=== PATIENT | male | born 1975 | race American Indian/Alaskan Native ===

== ENCOUNTER 2018-01-20 08:48 | Observation (INO) | payer MEDICAID ==
[2018-01-20] MEDS ORDERED: Sodium Chloride 0.9% 1,000 ML IV STA (09:32)
--- NOTE | 2018-01-20 09:37 | ED PDOC ---
Arrival/HPI - General Chief Complaint: Abdominal Pain Time Seen by Provider: 01/20/18 09:29 Historian: Patient - History of Present Illness Narrative History of Present Illness (Text): 01/20/18 09:35 42-year-old male presents today with a 2 week history of left-sided abdominal pain. Patient describes an intermittent achy pain in the left side of the abdomen. He is complaining of nausea without vomiting. He is complaining of ur inary frequency but denies dysuria or testicular pain. He denies fevers or chills. He denies radiation of pain to the back. Patient states the pain is localized to the left side of the abdomen. He states he's occasionally had a few loose stools. no medications have been taken for pain within the past week. No other complaints. Past Medical History - Provider Review Nursing Documentation Reviewed: Yes - Travel History Have you recently traveled outside [place] w/in the past 3 mons?: No - Infectious Disease Hx of Infectious Diseases: None - Tetanus Immunization Tetanus Immunization: Up to Date - Cardiac Hx Cardiac Disorders: No - Pulmonary Hx Asthma: Yes - Psychiatric Hx Depression: No Hx Emotional Abuse: No Hx Physical Abuse: No Hx Substance Use: No - Surgical History Hx Inguinal Hernia Repair: Yes - Anesthesia Hx Anesthesia: No - Suicidal Assessment Feels Threatened In Home Enviroment: No Family/Social History - Physician Review Nursing Documentation Reviewed: Yes Family/Social History: Unknown Family HX Smoking Status: Unknown If Ever Smoked Hx Alcohol Use: Yes Hx Substance Use: No Hx Substance Use Treatment: No Allergies/Home Meds Allergies/Adverse Reactions: Allergies seasonal Allergy (Uncoded 01/20/18 09:23) CONGESTION Home Medications: Home Meds Medication Instructions Recorded Confirmed Albuterol HFA [Ventolin HFA 90 0.09 mg IH PRN PRN 01/15/16 01/20/18 mcg/actuation (8 g)] Ibuprofen [Motrin] 600 mg PO Q6H PRN 01/20/18 01/20/18 Review of Systems - Review of Systems Constitutional: absent: Fatigue, Fevers Respiratory: absent: SOB, Cough Cardiovascular: absent: Chest Pain, Palpitations Gastrointestinal: Abdominal Pain, Nausea. absent: Constipation, Diarrhea, Vomiting Genitourinary Male: Frequency. absent: Dysuria, Hematuria Musculoskeletal: absent: Arthralgias, Back Pain, Neck Pain Skin: absent: Rash, Pruritis Neurological: absent: Headache, Dizziness Psychiatric: absent: Anxiety, Depression Physical Exam Vital Signs Reviewed: Yes Vital Signs Temp Pulse Resp BP Pulse Ox 01/20/18 09:13 98.8 F 70 18 130/78 98 Temperature: Afebrile Blood Pressure: Normal Pulse: Regular Respiratory Rate: Normal Appearance: Positive for: Well-Appearing, Non-Toxic, Comfortable Pain Distress: None Mental Status: Positive for: Alert and Oriented X 3 - Systems Exam Head: Present: Atraumatic Mouth: Present: Moist Mucous Membranes Neck: Present: Normal Range of Motion Respiratory/Chest: Present: Clear to Auscultation, Good Air Exchange. No: Respiratory Distress, Accessory Muscle Use Cardiovascular: Present: Regular Rate and Rhythm, Normal S1, S2. No: Murmurs Abdomen: Present: Tenderness (+ minimal LUQ and LLQ tenderness. ). No: Distention, Peritoneal Signs, Rebound, Guarding Back: Present: Normal Inspection. No: CVA Tenderness, Midline Tenderness, Paraspinal Tenderness Upper Extremity: Present: Normal ROM Lower Extremity: Present: Normal ROM Neurological: Present: GCS=15, Speech Normal Skin: Present: Warm, Dry, Normal Color. No: Rashes Psychiatric: Present: Alert, Oriented x 3 Medical Decision Making ED Course and Treatment: 01/20/18 10:15 Patient is nontoxic well appearing with stable vital signs presenting with left- sided abdominal pain CBC within normal limits CMp within normal limits Lipase within normal limits Urinalysis positive blood, no leukocytes EKG: Sinus bradycardia at 54 bpm normal axis normal intervals no ST elevations CAT scan: FINDINGS: LOWER THORAX: There is a lucency identified in the right lobe liver measuring 1.6 x 1.5 cm posteriorly. Peripheral nodular enhancement appears to be developing at this may represent a benign hemangioma. More definitive evaluation is advised using CT of the abdomen or MRI of the abdomen with and without contrast to prove this as a benign lesion. Remainder the liver appears unremarkable. LIVER: Unremarkable. No gross lesion or ductal dilatation. GALLBLADDER AND BILE DUCTS: Unremarkable. PANCREAS: Unremarkable. No gross lesion or ductal dilatation. SPLEEN: Unremarkable. ADRENALS: Unremarkable. No mass. KIDNEYS AND URETERS: Unremarkable. No hydronephrosis. No solid mass. VASCULATURE: Unremarkable. No aortic aneurysm. No aortic atherosclerotic calcification or mural plaque present. BOWEL: Stomach is only partially filled with fluid and a bit of air and retained food. No gross finding. The bowel is not appear obstructed. There is relatively prominent amount retained fecal material scattered throughout the colon which may indicate an element of constipation. Clinically correlate further. No perienteric or pericolic reactive changes throughout. No diverticular changes appreciated. APPENDIX: Normal appendix. PERITONEUM: Unremarkable. No free fluid. No free air. LYMPH NODES: Unremarkable. No enlarged lymph nodes. BLADDER: Unremarkable. REPRODUCTIVE: Unremarkable. BONES: No acute fracture. OTHER FINDINGS: None. IMPRESSION: 1. No acute abdominal or pelvic findings including the appendix. No colonic diverticular changes. 2. Subtle constipation as discussed above. No bowel obstruction, measure edema, ascites or free intra peritoneal gas collection. 3. 1.6 cm lesion right lobe liver potentially reflecting benign hemangioma. Evaluation is indeterminate by current exam. Follow-up ultrasound of the CT or MRI of the abdomen with and without contrast is advised for better characterization Toradol given for pain, normal saline IV bolus Patient reassessment:pt is non toxic well appearing; no distress. still c/o nausea and vague left sided pain. case discussed with dr. delgado; accepts observational status admission. all aspects of this case were discussed the attending of record. Impression: near syncope, Abdominal pain, liver lesion admit observational status remote tele Reassessment Condition: Re-examined, Improved - RAD Interpretation Radiology Orders: 01/20/18 09:30 ABD & PELVIS IV CONTRAST ONLY [CT] Stat - Medication Orders Current Medication Orders: Sodium Chloride (Sodium Chloride 0.9%) 1,000 mls @ 999 mls/hr IV .Q1H1M STA Stop: 01/20/18 10:32 Ketorolac Tromethamine (Toradol) 30 mg IVP STAT STA Stop: 01/20/18 09:33 Disposition/Present on Arrival - Present on Arrival Any Indicators Present on Arrival: No History of DVT/PE: No History of Uncontrolled Diabetes: No Urinary Catheter: No History of Decub. Ulcer: No History Surgical Site Infection Following: None - Disposition Have Diagnosis and Disposition been Completed?: Yes Diagnosis: Abdominal pain, Liver lesion, Hematuria, Near syncope Disposition: HOSPITALIZED Disposition Time: 11:41 Patient Plan: Observation Patient Problems: Current Active Problems Problem Status Onset Abdominal pain Acute Hematuria Acute Liver lesion Acute Near syncope Acute Condition: GOOD
[2018-01-20 09:57] LABS: PH,URINE 6.5 (4.7-8.0); URINE BILIRUBIN NEGATIVE (NEGATIVE); URINE BLOOD TRACE-INTACT (NEGATIVE); URINE GLUCOSE (UA) NEGATIVE (NEGATIVE); URINE LEUKOCYTE ESTERASE NEGATIVE Leu/uL (NEGATIVE); URINE PROTEIN NEGATIVE mg/dL (<30 mg/dL); URINE UROBILINOGEN 0.2 E.U./dL (<1 E.U./dL)
[2018-01-20 09:58] LABS: URINE APPEARANCE CLEAR (CLEAR); URINE COLOR YELLOW (YELLOW)
[2018-01-20 09:58] LABS: BASO # 0.02 K/mm3 (0.0-2.0); BASO % 0.4 % (0.0-3.0); EOS # 0.2 (0.0-0.7); GRAN # 2.09 (1.4-6.5); GRAN % 38.3 % (50.0-68.0); HEMOGLOBIN 14.5 g/dL (14.0-18.0); LYMPH # 2.8 (1.2-3.4); LYMPH % 51.6 % (22.0-35.0); MEAN CELL VOLUME 82.4 fl (80.0-105.0); MEAN CORPUSCULAR HEMOGLOBIN 28.4 pg (25.0-35.0); MEAN CORPUSCULAR HGB CONC 34.4 g/dl (31.0-37.0); MEAN PLATELET VOLUME 10.3 fl (7.0-11.0); MONO # 0.3 (0.1-0.6); MONO % 5.7 % (1.0-6.0); RBC 5.11 10^6/uL (3.5-6.1); RED CELL DISTRIBUTION WIDTH 12.9 % (11.5-14.5); WHITE BLOOD COUNT 5.5 10^3/uL (4.5-11.0)
[2018-01-20 10:07] LABS: ALB/GLOB RATIO 1.4 (1.1-1.8); ALBUMIN 4.3 g/dL (3.0-4.8); ALT/SGPT 32 U/L (7-56); AST/SGOT 26 U/L (17-59); BLOOD UREA NITROGEN 13 mg/dL (7-21); CALCIUM 9.6 mg/dL (8.4-10.5); GFR NON-AFRICAN AMERICAN > 60; LIPASE 111 U/L (23-300)
[2018-01-20 10:12] LABS: URINE RBC 0 - 2 /hpf (0-2)
[2018-01-20 10:13] LABS: URINE BACTERIA TRACE (NEG); URINE WBC NEGATIVE /hpf (0-6)
--- NOTE | 2018-01-20 11:08 | CT ---
Date of service: 01/20/2018 PROCEDURE: CT Abdomen and Pelvis with contrast HISTORY: left sided abd pain COMPARISON: None. TECHNIQUE: Following the intravenous administration of iodinated contrast material, a CT examination of the abdomen and pelvis performed from the domes of the diaphragms to the symphysis pubis with reformatted datasets provided in axial, sagittal and coronal planes. Oral contrast was not administered as per referring physician request. Coronal and sagittal reformats were generated. contrast dose: Omnipaque 350, 150 cc Radiation dose: Total exam DLP = 780.53 mGy-cm. This CT exam was performed using one or more of the following dose reduction techniques: Automated exposure control, adjustment of the mA and/or kV according to patient size, and/or use of iterative reconstruction technique. FINDINGS: LOWER THORAX: There is a lucency identified in the right lobe liver measuring 1.6 x 1.5 cm posteriorly. Peripheral nodular enhancement appears to be developing at this may represent a benign hemangioma. More definitive evaluation is advised using CT of the abdomen or MRI of the abdomen with and without contrast to prove this as a benign lesion. Remainder the liver appears unremarkable. LIVER: Unremarkable. No gross lesion or ductal dilatation. GALLBLADDER AND BILE DUCTS: Unremarkable. PANCREAS: Unremarkable. No gross lesion or ductal dilatation. SPLEEN: Unremarkable. ADRENALS: Unremarkable. No mass. KIDNEYS AND URETERS: Unremarkable. No hydronephrosis. No solid mass. VASCULATURE: Unremarkable. No aortic aneurysm. No aortic atherosclerotic calcification or mural plaque present. BOWEL: Stomach is only partially filled with fluid and a bit of air and retained food. No gross finding. The bowel is not appear obstructed. There is relatively prominent amount retained fecal material scattered throughout the colon which may indicate an element of constipation. Clinically correlate further. No perienteric or pericolic reactive changes throughout. No diverticular changes appreciated. APPENDIX: Normal appendix. PERITONEUM: Unremarkable. No free fluid. No free air. LYMPH NODES: Unremarkable. No enlarged lymph nodes. BLADDER: Unremarkable. REPRODUCTIVE: Unremarkable. BONES: No acute fracture. OTHER FINDINGS: None. IMPRESSION: 1. No acute abdominal or pelvic findings including the appendix. No colonic diverticular changes. 2. Subtle constipation as discussed above. No bowel obstruction, measure edema, ascites or free intra peritoneal gas collection. 3. 1.6 cm lesion right lobe liver potentially reflecting benign hemangioma. Evaluation is indeterminate by current exam. Follow-up ultrasound of the CT or MRI of the abdomen with and without contrast is advised for better characterization
[2018-01-20 12:18] LABS: TROPONIN I < 0.01 ng/mL
--- NOTE | 2018-01-20 13:42 | RAD ---
Date of service: 01/20/2018 HISTORY: abd pain COMPARISON: No prior. FINDINGS: LUNGS: No active pulmonary disease. PLEURA: No significant pleural effusion identified, no pneumothorax apparent. CARDIOVASCULAR: No aortic atherosclerotic calcification present. Normal cardiac size. No pulmonary vascular congestion. OSSEOUS STRUCTURES: No significant abnormalities. VISUALIZED UPPER ABDOMEN: Normal. OTHER FINDINGS: None. IMPRESSION: No active disease.
--- NOTE | 2018-01-20 15:49 | CARD ---
APPROVED REPORT Date of service: 01/20/2018 EKG Measurement Heart [id number] <Conclusion> Sinus bradycardia Otherwise normal ECG
--- NOTE | 2018-01-20 16:32 | CP.PCM.HP ---
History of Present Illness - History of Present Illness History of Present Illness: PGY-1 Medicine H&P for Dr. Frederick Mr. Carmona is a 42 year old -[place] male with a past medical history of asthma who presents to [facility] with 2 week history of intermittent L sided abdominal pain with associated nausea, lightheadedness, and abdominal bloating. Abdominal pain is described as "twisting" with nausea, followed by subsequent abdominal bloating that makes it difficult to breathe--per patient, "feels like I am being suffocated"--and lightheadedness. He expresses feeling like he is going to faint but denies any syncopal episodes. He states he experiences 5-6 episodes of these symptoms per day, each lasting ~ 5 mins long, which then spontaneously resolve. Patient notes improvement of symptoms after drinking water, denies any association with positional changes or meals. Patient endorses he is able to tolerate PO diet and is seen eating crackers in the ED during interview. He reports that symptoms have gradually worsened since onset, the most severe being 2 days ago [address], which prompted him to test puller until symptoms resolved. Patient endorses 2 episodes of loose stools since onset of symptoms, but had a normal BM this AM. He also endorses increased urinary frequency during this time, but denies any dysuria, hematuria, or urgency. Patient was seen by his PMD yesterday, and was given Gas-X and Nexium for symptoms. Denies fevers/chills, headaches, changes in vision, photophobia, tinnitus, chest pain, palpitations, vomiting. No other acute complaints at this time. PMHx: Asthma (uses albuterol inhaler PRN, last used one month ago; hospitalized as a child, never intubated) PSHx: none Allergies: NKDA Home Medications: Motrin, albuterol prn Social Hx: FHx: Exercises regularly, eats "healthy diet" (does not eat pork or beef); Social alcohol use (4-5 mixed drinks/month), denies tobacco or illicit drug use. Family Hx: Mother- DM, HTN PMD: Dr. Young Present on Admission - Present on Admission Any Indicators Present on Admission: No History of DVT/PE: No History of Uncontrolled Diabetes: No Urinary Catheter: No Decubitus Ulcer Present: No Review of Systems - Constitutional Constitutional: absent: Chills, Fatigue, Fever - EENT Eyes: absent: Blurred Vision, Change in Vision Ears: absent: Tinnitus, Disequilibrium - Cardiovascular Cardiovascular: Lightheadedness. absent: Chest Pain, Chest Pain at Rest, Dyspnea, Palpitations, Radiating Pain, Syncope - Respiratory Respiratory: absent: Cough, Dyspnea, Wheezing - Gastrointestinal Gastrointestinal: Nausea. absent: Abdominal Pain, Diarrhea, Heartburn, Vomiting - Genitourinary Genitourinary: Urinary Frequency. absent: Difficulty Urinating, Dysuria, Hematuria, Urinary Urgency - Musculoskeletal Musculoskeletal: absent: Abnormal Gait, Arthralgias, Back Pain, Joint Swelling, Limited Range of Motion, Myalgias, Numbness, Tingling - Neurological Neurological: Dizziness. absent: Abnormal Hearing, Confusion, Disequilibrium, Numbness, Focal Weakness, Headaches, Loss of Vision, Syncope, Tingling, Vertigo, Weakness - Psychiatric Psychiatric: absent: Anxiety, Confusion, Depression Past Patient History - Infectious Disease Hx of Infectious Diseases: None - Tetanus Immunizations Tetanus Immunization: Up to Date - Past Social History Smoking Status: Unknown If Ever Smoked - CARDIAC Hx Cardiac Disorders: No - PULMONARY Hx Asthma: Yes - PSYCHIATRIC Hx Depression: No Hx Emotional Abuse: No Hx Physical Abuse: No Hx Substance Use: No - SURGICAL HISTORY Hx Surgeries: No - ANESTHESIA Hx Anesthesia: No Meds Home Medications: Home Medication List Medication Instructions Recorded Confirmed Type Ibuprofen [Motrin] 600 mg PO Q6H PRN #20 tab 01/20/18 Rx Allergies/Adverse Reactions: Allergies Allergy/AdvReac Type Severity Reaction Status Date / Time seasonal Allergy CONGESTION Uncoded 01/20/18 09:23 Physical Exam - Constitutional Appears: Non-toxic, No Acute Distress - Head Exam Head Exam: ATRAUMATIC, NORMAL INSPECTION, NORMOCEPHALIC - Eye Exam Eye Exam: EOMI, Normal appearance - ENT Exam ENT Exam: Mucous Membranes Moist, Normal Exam - Neck Exam Neck exam: Positive for: Normal Inspection - Respiratory Exam Respiratory Exam: Clear to Auscultation Bilateral, NORMAL BREATHING PATTERN. absent: Rales, Rhonchi, Wheezes, Respiratory Distress, Stridor - Cardiovascular Exam Cardiovascular Exam: Bradycardia, +S1, +S2 - GI/Abdominal Exam GI & Abdominal Exam: Normal Bowel Sounds, Soft, Tenderness (Mild TTP LUQ, LLQ). absent: Distended, Firm, Guarding, Organomegaly, Rebound, Rigid - Extremities Exam Extremities exam: Positive for: full ROM, normal capillary refill, normal inspe ction, pedal pulses present. Negative for: calf tenderness, joint swelling, pedal edema - Back Exam Back exam: NORMAL INSPECTION - Neurological Exam Neurological exam: Alert, CN II-XII Intact, Normal Gait, Oriented x3 - Psychiatric Exam Psychiatric exam: Normal Affect, Normal Mood - Skin Skin Exam: Dry, Intact, Normal Color, Warm Results - Vital Signs Recent Vital Signs: Last Vital Signs Temp 98.3 F 01/20/18 15:45 Pulse 68 01/20/18 15:45 Resp 18 01/20/18 15:45 BP 126/80 01/20/18 15:45 Pulse Ox 95 01/20/18 15:45 - Labs Result Diagrams: 01/20/18 09:40 01/20/18 09:40 Labs: Laboratory Results - last 24 hr 01/20/18 01/20/18 01/20/18 09:40 09:40 09:40 WBC 5.5 RBC 5.11 Hgb 14.5 Hct 42.1 MCV 82.4 MCH 28.4 MCHC 34.4 RDW 12.9 Plt Count 240 MPV 10.3 Gran % 38.3 L Lymph % (Auto) 51.6 H Cochran % (Auto) 5.7 Eos % (Auto) 4.0 Baso % (Auto) 0.4 Gran # 2.09 Lymph # (Auto) 2.8 Cochran # (Auto) 0.3 Eos # (Auto) 0.2 Baso # (Auto) 0.02 Sodium 143 Potassium 4.1 Chloride 106 Carbon Dioxide 29 Anion Gap 12 BUN 13 Creatinine 1.0 Est GFR ( Amer) > 60 Est GFR (Non-Af Amer) > 60 Random Glucose 110 Calcium 9.6 Total Bilirubin 0.7 AST 26 ALT 32 Alkaline Phosphatase 61 Lactate Dehydrogenase 369 Total Creatine Kinase 179 Troponin I < 0.01 Total Protein 7.5 Albumin 4.3 Globulin 3.2 Albumin/Globulin Ratio 1.4 Lipase 111 Urine Color Urine Appearance Urine pH Ur Specific [place] Urine Protein Urine Glucose (UA) Urine Ketones Urine Blood Urine Nitrate Urine Bilirubin Urine Urobilinogen Ur Leukocyte Esterase Urine RBC Urine WBC Urine Bacteria 01/20/18 09:50 WBC RBC Hgb Hct MCV MCH MCHC RDW Plt Count MPV Gran % Lymph % (Auto) [place] % (Auto) Eos % (Auto) Baso % (Auto) Gran # Lymph # (Auto) [place] # (Auto) Eos # (Auto) Baso # (Auto) Sodium Potassium Chloride Carbon Dioxide Anion Gap BUN Creatinine Est GFR ( Amer) Est GFR (Non-Af Amer) Random Glucose Calcium Total Bilirubin AST ALT Alkaline Phosphatase Lactate Dehydrogenase Total Creatine Kinase Troponin I Total Protein Albumin Globulin Albumin/Globulin Ratio Lipase Urine Color Yellow Urine Appearance Clear Urine pH 6.5 Ur Specific [place] 1.020 Urine Protein Negative Urine Glucose (UA) Negative Urine Ketones Negative Urine Blood Trace-intact H Urine Nitrate Negative Urine Bilirubin Negative Urine Urobilinogen 0.2 Ur Leukocyte Esterase Negative Urine RBC 0 - 2 Urine WBC Negative Urine Bacteria Trace Assessment & Plan - Assessment and Plan (Free Text) Assessment: 42 yo M with PMHx of asthma, who presents with 2 week history of left abdominal pain with associated nausea and lightheadedness. Plan: Presyncope --EKG in ED: sinus filiberto @ 54 bpm --UA: trace bacteria, trace blood --telemetry observation --f/u morning labs --orthostatic vitals --f/u UDS --f/u ECHO Abdominal pain with associated nausea --CT abdomen/pelvis: 1.6 x 1.5 cm lesion in R hepatic lobe with peripheral nodular enhancement, likely benign hemangioma -f/u CT liver protocol PPx, Diet, Disposition --GI ppx: protonix 40 PO BID --Diet: HHD --Dispo: monitor toleration of diet, adjust as needed, f/u imaging, observe under telemetry Case discussed with Dr. Otoniel Barraza DO, PGY-1
[2018-01-20 16:54] VITALS: BMI 31.0
[2018-01-20] MEDS ORDERED: Influenza Vaccine 60 mcg/0.5 mL SYR (4YR UP) IM ONE (16:54)
[2018-01-20] MEDS ORDERED: Pneumococcal 23-Valent Vaccine IM ONE (16:54)
[2018-01-20 18:34] VITALS: RESP 20
[2018-01-21 01:41] LABS: BARBITURATES, UR NEGATIVE (NEGATIVE); BENZODIAZEPINES, UR NEGATIVE (NEGATIVE); OPIATES, UR NEGATIVE (NEGATIVE); PHENCYCLIDINE, UR NEGATIVE (NEGATIVE)
[2018-01-21] MEDS ORDERED: Pantoprazole 40 mg EC Tab PO SCH (06:00)
[2018-01-21 06:23] VITALS: PULSE 54
[2018-01-21 06:51] LABS: ALB/GLOB RATIO 1.2 (1.1-1.8); ALBUMIN 3.7 g/dL (3.0-4.8); ALT/SGPT 30 U/L (7-56); AST/SGOT 27 U/L (17-59); BLOOD UREA NITROGEN 10 mg/dL (7-21); CALCIUM 8.7 mg/dL (8.4-10.5); GFR NON-AFRICAN AMERICAN > 60
[2018-01-21 07:24] LABS: BASO # 0.01 K/mm3 (0.0-2.0); BASO % 0.2 % (0.0-3.0); EOS # 0.2 (0.0-0.7); EOS % 3.7 % (1.5-5.0); GRAN # 1.92 (1.4-6.5); GRAN % 35.5 % (50.0-68.0); HEMOGLOBIN 14.1 g/dL (14.0-18.0); LYMPH % 55.6 % (22.0-35.0); MEAN CELL VOLUME 81.9 fl (80.0-105.0); MEAN CORPUSCULAR HGB CONC 34.2 g/dl (31.0-37.0); MEAN PLATELET VOLUME 10.1 fl (7.0-11.0); MONO # 0.3 (0.1-0.6); RBC 5.03 10^6/uL (3.5-6.1); RED CELL DISTRIBUTION WIDTH 12.9 % (11.5-14.5); WHITE BLOOD COUNT 5.4 10^3/uL (4.5-11.0)
[2018-01-21 08:20] VITALS: BP 126/85; TEMP 98; O2SAT 97
--- NOTE | 2018-01-21 10:09 | CT ---
Date of service: 01/21/2018 PROCEDURE: CT Abdomen with and without intravenous contrast HISTORY: new 1.6 cm R hepatic lobe lesion, hemangioma eval COMPARISON: None. TECHNIQUE: Axial images of the abdomen from lung bases to iliac crest with and without intravenous contrast enhancement. Arterial and venous phases were performed coronal and sagittal reformats generated. Oral contrast also administered. Intravenous contrast Dose: 150 cc of Omni 350 Radiation dose: Total exam DLP = 1538.16 mGy-cm. This CT exam was performed using one or more of the following dose reduction techniques: Automated exposure control, adjustment of the mA and/or kV according to patient size, and/or use of iterative reconstruction technique. FINDINGS: LOWER THORAX: Unremarkable. LIVER: There is a 13 mm lesion in the right lobe of the liver. There is a small peripheral enhancing nodule consistent with a hemangioma. The nodule is best appreciated on coronal image 66 series 607. GALLBLADDER AND BILE DUCTS: Unremarkable. PANCREAS: Unremarkable. No gross lesion or ductal dilatation. SPLEEN: Unremarkable. ADRENALS: Unremarkable. No mass. KIDNEYS AND URETERS: Unremarkable. No hydronephrosis. No solid mass. VASCULATURE: Unremarkable. No aortic aneurysm. No aortic atherosclerotic calcification or mural plaque present. BOWEL: Unremarkable. No obstruction. No gross mural thickening. PERITONEUM: Unremarkable. No free fluid. No free air. LYMPH NODES: Unremarkable. No enlarged lymph nodes. BONES: No acute fracture. OTHER FINDINGS: None. IMPRESSION: 1.3 cm hemangioma in the right lobe of the liver.
--- NOTE | 2018-01-21 11:08 | CARD ---
APPROVED REPORT Date of service: 01/21/2018 EXAM: Two-dimensional and M-mode echocardiogram with Doppler and color Doppler. INDICATION NEAR SYNCOPE 2D DIMENSIONS Left Atrium (2D)4.2 (1.6-4.0cm)IVSd1.2 (0.7-1.1cm) LVDd5.4 (3.9-5.9cm)PWd1.1 (0.7-1.1cm) LVDs4.1 (2.5-4.0cm)FS (%) 25.6 % LVEF (%)49.9 (>50%) M-Mode DIMENSIONS Aortic Root2.70 (2.2-3.7cm)Aortic Cusp Exc.2.20 (1.5-2.0cm) Aortic Valve AoV Peak Uvhlswok730.0cm/Mukund Peak GR.5mmHg Mitral Valve MV E Wzhfgbxg31.7cm/sMV A Wassvozx10.2cm/sE/A ratio1.2 TDI E/Lateral E'0.0E/Medial E'0.0 Tricuspid Valve TR Peak [id number]/sRAP [id number] Peak Gr.10mmHg [id number] LEFT VENTRICLE The left ventricle is normal size. There is normal left ventricular wall thickness. The systolic function is mildly impaired. No Regional wall motion abnormalities noted. The left ventricular diastolic function is normal. RIGHT VENTRICLE The right ventricle is normal size. There is normal right ventricular wall thickness. The right ventricular systolic function is normal. ATRIA The left atrium is borderline dilated. The right atrium size is normal. AORTIC VALVE The aortic valve is normal in structure. No aortic regurgitation is present. There is no aortic valvular stenosis. MITRAL VALVE The mitral valve is normal in structure. Mitral regurgitation is mild. There is no mitral valve stenosis. TRICUSPID VALVE The tricuspid valve is normal in structure. There is trace tricuspid regurgitation. PULMONIC VALVE The pulmonary valve is normal in structure. There is mild pulmonic valvular regurgitation. There is no pulmonic valvular stenosis. GREAT VESSELS The aortic root is normal in size. The IVC is normal in size and collapses >50% with inspiration. PERICARDIAL EFFUSION There is no pericardial effusion. <Conclusion> The left ventricle is normal size. There is normal left ventricular wall thickness. The systolic function is mildly impaired. No Regional wall motion abnormalities noted. The left ventricular diastolic function is normal. Mitral regurgitation is mild. There is mild pulmonic valvular regurgitation.
--- NOTE | 2018-01-21 14:23 | CP.PCM.DIS ---
Provider - Provider Date of Admission: 01/20/18 12:32 Attending physician: Galileo Frederick MD Time Spent in preparation of Discharge (in minutes): 40 Hospital Course - Lab Results Lab Results: Most Recent Lab Values WBC 5.4 10^3/uL (4.5-11.0) 01/21/18 06:10 RBC 5.03 10^6/uL (3.5-6.1) 01/21/18 06:10 Hgb 14.1 g/dL (14.0-18.0) 01/21/18 06:10 Hct 41.2 % (42.0-52.0) L 01/21/18 06:10 MCV 81.9 fl (80.0-105.0) 01/21/18 06:10 MCH 28.0 pg (25.0-35.0) 01/21/18 06:10 MCHC 34.2 g/dl (31.0-37.0) 01/21/18 06:10 RDW 12.9 % (11.5-14.5) 01/21/18 06:10 Plt Count 230 10^3/uL (120.0-450.0) 01/21/18 06:10 MPV 10.1 fl (7.0-11.0) 01/21/18 06:10 Gran % 35.5 % (50.0-68.0) L 01/21/18 06:10 Lymph % (Auto) 55.6 % (22.0-35.0) H 01/21/18 06:10 Chambers % (Auto) 5.0 % (1.0-6.0) 01/21/18 06:10 Eos % (Auto) 3.7 % (1.5-5.0) 01/21/18 06:10 Baso % (Auto) 0.2 % (0.0-3.0) 01/21/18 06:10 Gran # 1.92 (1.4-6.5) 01/21/18 06:10 Lymph # (Auto) 3.0 (1.2-3.4) 01/21/18 06:10 Chambers # (Auto) 0.3 (0.1-0.6) 01/21/18 06:10 Eos # (Auto) 0.2 (0.0-0.7) 01/21/18 06:10 Baso # (Auto) 0.01 K/mm3 (0.0-2.0) 01/21/18 06:10 Sodium 138 mmol/L (132-148) 01/21/18 06:10 Potassium 4.1 mmol/L (3.6-5.0) 01/21/18 06:10 Chloride 104 mmol/L (98-107) 01/21/18 06:10 Carbon Dioxide 28 mmol/L (21-33) 01/21/18 06:10 Anion Gap 10 (10-20) 01/21/18 06:10 BUN 10 mg/dL (7-21) 01/21/18 06:10 Creatinine 1.0 mg/dl (0.8-1.5) 01/21/18 06:10 Est GFR ( Amer) > 60 01/21/18 06:10 Est GFR (Non-Af Amer) > 60 01/21/18 06:10 Random Glucose 126 mg/dL (70-110) H 01/21/18 06:10 Calcium 8.7 mg/dL (8.4-10.5) 01/21/18 06:10 Phosphorus 4.6 mg/dL (2.5-4.5) H 01/21/18 06:10 Magnesium 1.8 mg/dL (1.7-2.2) 01/21/18 06:10 Total Bilirubin 0.6 mg/dL (0.2-1.3) 01/21/18 06:10 AST 27 U/L (17-59) 01/21/18 06:10 ALT 30 U/L (7-56) 01/21/18 06:10 Alkaline Phosphatase 58 U/L (38-126) 01/21/18 06:10 Lactate Dehydrogenase 369 U/L (333-699) 01/20/18 09:40 Total Creatine Kinase 179 U/L (35-230) 01/20/18 09:40 Troponin I < 0.01 ng/mL 01/20/18 09:40 Total Protein 6.7 g/dL (5.8-8.3) 01/21/18 06:10 Albumin 3.7 g/dL (3.0-4.8) 01/21/18 06:10 Globulin 3.0 gm/dL 01/21/18 06:10 Albumin/Globulin Ratio 1.2 (1.1-1.8) 01/21/18 06:10 Lipase 111 U/L (23-300) 01/20/18 09:40 Urine Color Yellow (YELLOW) 01/20/18 09:50 Urine Appearance Clear (CLEAR) 01/20/18 09:50 Urine pH 6.5 (4.7-8.0) 01/20/18 09:50 Ur Specific Tangent 1.020 (1.005-1.035) 01/20/18 09:50 Urine Protein Negative mg/dL (<30 mg/dL) 01/20/18 09:50 Urine Glucose (UA) Negative mg/dL (NEGATIVE) 01/20/18 09:50 Urine Ketones Negative mg/dL (NEGATIVE) 01/20/18 09:50 Urine Blood Trace-intact (NEGATIVE) H 01/20/18 09:50 Urine Nitrate Negative (NEGATIVE) 01/20/18 09:50 Urine Bilirubin Negative (NEGATIVE) 01/20/18 09:50 Urine Urobilinogen 0.2 E.U./dL (<1 E.U./dL) 01/20/18 09:50 Ur Leukocyte Esterase Negative Anmol/uL (NEGATIVE) 01/20/18 09:50 Urine RBC 0 - 2 /hpf (0-2) 01/20/18 09:50 Urine WBC Negative /hpf (0-6) 01/20/18 09:50 Urine Bacteria Trace (NEG) 01/20/18 09:50 Urine Opiates Screen Negative (NEGATIVE) 01/21/18 00:10 Urine Methadone Screen Negative (NEGATIVE) 01/21/18 00:10 Ur Barbiturates Screen Negative (NEGATIVE) 01/21/18 00:10 Ur Phencyclidine Scrn Negative (NEGATIVE) 01/21/18 00:10 Ur Amphetamines Screen Negative (NEGATIVE) 01/21/18 00:10 U Benzodiazepines Scrn Negative (NEGATIVE) 01/21/18 00:10 U Oth Cocaine Metabols Negative (NEGATIVE) 01/21/18 00:10 U Cannabinoids Screen Negative (NEGATIVE) 01/21/18 00:10 - Hospital Course Hospital Course: HPI: Mr. Carmona is a 42 year old -[place]ames[place] male with a past medical history of asthma who [place] [facility] [place] 2 week history of intermittent L sided abdominal pain with associated nausea, lightheadedness, and abdominal bloating. Abdominal pain is described as "twisting" with nausea, followed by subsequent abdominal bloating that makes it difficult to breathe--per patient, "feels like I am being suffocated"--and lightheadedness. He expresses feeling like he is going to faint but denies any syncopal episodes. He states he experiences 5-6 episodes of these symptoms per day, each lasting ~ 5 mins long, which then spontaneously resolve. Patient notes improvement of symptoms after drinking water, denies any association with positional changes or meals. Patient endorses he is able to tolerate PO diet and is seen eating crackers in the ED during interview. 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 Patient endorses 2 episodes of loose stools since onset of symptoms, but had a normal BM this AM. He also endorses increased urinary frequency during this time, but denies any dysuria, hematuria, or urgency. Patient was seen by his PMD yesterday, and was given Gas-X and Nexium for symptoms. Denies fevers/chills, headaches, changes in vision, photophobia, tinnitus, chest pain, palpitations, vomiting. No other acute complaints at this time. During course of admission: EKG on admission demonstrated sinus bradycardia at 54 beats per minute. Urinalysis demonstrated trace bacteria and blood. Chest X-ray showed no acute findings. CT abdomen/pelvis demonstrated mild constipation, as well as a 1.6x 1.5 cm lesion in the right hepatic lobe with peripheral nodular enhancement, likely a benign hemangioma. He was admitted to telemetry for observation. Rhythm remained sinus, however, he had episodes of bradycardia at 48 beats per minute. Liver protocol CT was obtained and demonstrated a 1.3 cm hepatic hemangioma. Echocardiogram and orthostatics were obtained. Orthostatic vitals were negative. Echocardiogram demonstrated mild left ventricular systolic dysfunction with EF of 49.9%. On further questioning, patient endorsed uncle who due to heart problem at 30 years old, but was uncertain on the details. All findings were discussed with patient, and he expressed understanding. Patient stable for discharge. Patient is medically stable for discharge home, as per Dr. Frederick. He was counseled to return to the emergency department if symptoms return or worsen. Patient is to follow up with primary medical doctor, Dr. Young, within 1 week of discharge. Patient is to follow up with cardiology in the outpatient setting for further evaluation of echocardiogram findings. Patient counseled on standing up slowly and maintaining adequate hydration. Patient counseled on avoiding exertional physical activity until evaluated by business affairs manager. Patient counseled on eating high fiber diet to alleviate constipation. Patient is to take pantoprazole as needed for abdominal pain. Patient is to take home medications as prescribed and instructed in discharge instructions. Reviewed all medications and imaging findings with patient, and he understands instructions. Patient understands and agrees with discharge plan. The following is a summary of hospital course. For full detail, please refer to EMR. - Date & Time of H&P Date of H&P: 01/21/18 Time of H&P: 08:25 Discharge Exam - Head Exam Head Exam: ATRAUMATIC, NORMAL INSPECTION, NORMOCEPHALIC - Eye Exam Eye Exam: EOMI, Normal appearance Pupil Exam: NORMAL ACCOMODATION - ENT Exam ENT Exam: Mucous Membranes Moist, Normal Exam - Neck Exam Neck exam: Full Rom, Normal Inspection - Respiratory Exam Respiratory Exam: Clear to PA & Lateral, NORMAL BREATHING PATTERN, UNREMARKABLE. absent: Rales, Rhonchi, Wheezes, Respiratory Distress, Stridor - Cardiovascular Exam Cardiovascular Exam: REGULAR RHYTHM, +S1, +S2 - GI/Abdominal Exam GI & Abdominal Exam: Normal Bowel Sounds, Soft, Unremarkable. absent: Distended, Firm, Guarding, Rebound, Rigid, Tenderness - Extremities Exam Extremities exam: full ROM, normal capillary refill, normal inspection, pedal pulses present - Back Exam Back exam: NORMAL INSPECTION - Neurological Exam Neurological exam: Alert, CN II-XII Intact, Normal Gait, Oriented x3 - Psychiatric Exam Psychiatric exam: Normal Affect, Normal Mood - Skin Skin Exam: Dry, Intact, Normal Color, Warm Discharge Plan - Follow Up Plan Condition: GOOD Disposition: HOME/ ROUTINE Instructions: Acute Abdominal Pain (DC), Acute Abdominal Pain (GEN) Additional Instructions: Patient is medically stable for discharge home, as per Dr. Frdeerick. Please continue home medications as currently prescribed. Patient is instructed to follow up with his primary care provider within 1 week of discharge for followup of hospital course. Please have your primary care provider provide referral for outpatient cardiology followup, as echocardiogram obtained during hospital course demonstrated mildly impaired systolic function with an ejection fraction of 49.9. Referrals: PCP,NO [Non-Staff] -
== END 2018-01-21 14:45 | disposition home or self-care (01) ==
LOC: ED 08:48 → ERH 12:32 → 3RSO 15:49
PROVIDERS: ADMIT Internal Medicine; ATTEND Internal Medicine
DX: R42 Dizziness and giddiness (principal); R14.0 Abdominal distension (gaseous); R55 Syncope and collapse; R00.1 Bradycardia, unspecified; K59.00 Constipation, unspecified; K76.9 Liver disease, unspecified; J45.909 Unspecified asthma, uncomplicated
CPT/HCPCS: 36415; 71045; 74177; 80053; 80324; 80345; 80346; 80349; 80353; 80358; 80361; 81001; 82550; 83615; 83690; 83735; 83992; 84100; 84484; 85025; 93005; 93306; 96360; 96374; 99285; G0378; J1885; J7030; Q9967

== ENCOUNTER 2018-08-23 21:09 | Emergency (ER) | payer MEDICAID ==
[2018-08-23 21:31] VITALS: TEMP 99; BMI 30.6
--- NOTE | 2018-08-23 21:47 | ED PDOC ---
Arrival/HPI - General Chief Complaint: Abdominal Pain Time Seen by Provider: 08/23/18 21:25 Historian: Patient - History of Present Illness Narrative History of Present Illness (Text): 08/23/18 21:46 Justin Carmona is a 42 year old male, whose past medical history includes asthma, who presents to the ED complaining of abdominal pain. Patient states he began "feeling funny" and reports LUQ discomfort after eating tonight. Patient notes he feels bloated and his abdomen "get hard and then soft." Patient also reports he felt dizzy and like his "coordination was off." Patient denies any fever, chills, chest pain, shortness of breath, nausea, vomiting, headache, dizziness, or any other complaints. Symptom Onset: Gradual Symptom Course: Unchanged Activities at Onset: Light Context: Home Past Medical History - Provider Review Nursing Documentation Reviewed: Yes - Infectious Disease Hx of Infectious Diseases: None - Tetanus Immunization Tetanus Immunization: Up to Date - Cardiac Hx Cardiac Disorders: No - Pulmonary Hx Asthma: Yes - Neurological Hx Neurological Disorder: No - HEENT Hx HEENT Disorder: No - Renal Hx Renal Disorder: No - Endocrine/Metabolic Hx Endocrine Disorders: No - Hematological/Oncological Hx Blood Disorders: No - Integumentary Hx Dermatological Disorder: No - Musculoskeletal/Rheumatological Hx Falls: No - Genitourinary/Gynecological Hx Genitourinary Disorders: No - Psychiatric Hx Depression: No Hx Emotional Abuse: No Hx Physical Abuse: No Hx Substance Use: No - Surgical History Hx Inguinal Hernia Repair: Yes - Anesthesia Hx Anesthesia: No - Suicidal Assessment Feels Threatened In Home Enviroment: No Family/Social History - Physician Review Nursing Documentation Reviewed: Yes Family/Social History: Unknown Family HX Smoking Status: Unknown If Ever Smoked Hx Alcohol Use: Yes Hx Substance Use: No Hx Substance Use Treatment: No Allergies/Home Meds Allergies/Adverse Reactions: Allergies seasonal Allergy (Uncoded 08/23/18 21:30) CONGESTION Home Medications: Home Meds Medication Instructions Recorded Confirmed Albuterol HFA [Ventolin HFA 90 0.09 mg IH PRN PRN 01/15/16 01/20/18 mcg/actuation (8 g)] Review of Systems - Physician Review All systems were reviewed & negative as marked: Yes - Review of Systems Constitutional: Normal. absent: Fevers Eyes: Normal ENT: Normal Respiratory: Normal Cardiovascular: Normal Gastrointestinal: Abdominal Pain Genitourinary Male: Normal. absent: Dysuria, Frequency, Hematuria, Urinary Output Changes Musculoskeletal: Normal. absent: Back Pain, Neck Pain Skin: Normal. absent: Rash Neurological: Dizziness Endocrine: Normal Hemo/Lymphatic: Normal Psychiatric: Normal Physical Exam Vital Signs Reviewed: Yes Vital Signs Temp Pulse Resp BP Pulse Ox 08/23/18 21:31 99 F 60 18 136/90 98 Temperature: Afebrile Blood Pressure: Normal Pulse: Regular Respiratory Rate: Normal Appearance: Positive for: Well-Appearing, Non-Toxic, Comfortable Pain Distress: None Mental Status: Positive for: Alert and Oriented X 3 - Systems Exam Head: Present: Atraumatic, Normocephalic Pupils: Present: PERRL Extroacular Muscles: Present: EOMI Conjunctiva: Present: Normal Mouth: Present: Moist Mucous Membranes Neck: Present: Normal Range of Motion Respiratory/Chest: Present: Clear to Auscultation, Good Air Exchange. No: Respiratory Distress, Accessory Muscle Use Cardiovascular: Present: Regular Rate and Rhythm, Normal S1, S2. No: Murmurs Abdomen: Present: Tenderness (LUQ tenderness). No: Distention, Peritoneal Signs Back: Present: Normal Inspection Upper Extremity: Present: Normal Inspection. No: Cyanosis, Edema Lower Extremity: Present: Normal Inspection. No: Edema Neurological: Present: GCS=15, CN II-XII Intact, Speech Normal, Motor Func Grossly Intact, Normal Sensory Function, Normal Cerebellar Funct Skin: Present: Warm, Dry, Normal Color. No: Rashes Psychiatric: Present: Alert, Oriented x 3, Normal Insight, Normal Concentration Medical Decision Making ED Course and Treatment: 08/23/18 21:46 Impression: 42 year old male complaining of LUQ discomfort and dizziness. Plan: -- CT Head w/o contrast -- CT Abdomen and Pelvis with IV contrast -- EKG -- Labs, lipase -- IV fluids -- Zofran -- Pepcid -- Reassess and disposition Prior Visits: Notes and results from previous visits were reviewed. Progress Notes: 08/24/18 00:05 Reviewed EKG, NSR at 62 bpm. 1st degree AV block. Non-specific ST/T wave changes. 08/24/18 01:23 Reviewed radiology, CT Head: The ventricles and sulci are symmetric bilaterally. There is no evidence of acute hemorrhage or infarct. There is no midline shift, mass effect, or extra- axial fluid collection. The osseous structures are unremarkable. The visualized paranasal sinuses and mastoid air cells are clear. Impression: Negative study. Electronically signed on Aug 24, 2018 1:03:52 AM EDT by: Yaw Moon M.D., Certified by MARGARET RODRIGUEZ, Neuroradiology CT Abdomen and Pelvis: Chest: The visualized lung bases are clear. Abdomen: The spleen, pancreas, kidneys, gallbladder, and adrenal glands are unremarkable. There are 2 ill-defined low attenuation lesions in segment of the liver. The largest of these measures 1.4 x 1.9 cm. The aorta is within normal limits. There is no evidence of abdominal lymphadenopathy or ascites. Pelvis: The bowel is unremarkable, with no obstructive or inflammatory changes. The appendix is normal. The urinary bladder is within normal limits. The other pelvic structures appear grossly intact. There is no evidence of pelvic lymphadenopathy or ascites. Bones: There are no suspicious osseous abnormalities seen. Impression: 1. No obstructive or inflammatory bowel changes. 2. No evidence of hydronephrosis. The kidneys are otherwise unremarkable. 3. Low attenuation lesions in the right lobe of the liver. These are stable and compared the prior examination, and likely represent hepatic hemangiomas. Follow-up is recommended only as clinically indicated. Electronically signed on Aug 24, 2018 1:03:59 AM EDT by: Yaw Moon M.D., Certified by MARGARET RODRIGUEZ, Neuroradiology - Lab Interpretations I have reviewed the lab results: Yes - RAD Interpretation Sea Foam Kiss Maker: ED Physician, Radiologist - EKG Interpretation Type: 12 lead EKG - Scribe Statement The provider has reviewed the documentation as recorded by the Noah Graham Provider Scribe Attestation: All medical record entries made by the Scribe were at my direction and personally dictated by me. I have reviewed the chart and agree that the record accurately reflects my personal performance of the history, physical exam, medical decision making, and the department course for this patient. I have also personally directed, reviewed, and agree with the discharge instructions and disposition. Disposition/Present on Arrival - Present on Arrival Any Indicators Present on Arrival: No History of DVT/PE: No History of Uncontrolled Diabetes: No Urinary Catheter: No History of Decub. Ulcer: No History Surgical Site Infection Following: None - Disposition Have Diagnosis and Disposition been Completed?: Yes Diagnosis: Gastritis, Adverse reaction to food Disposition: HOME/ ROUTINE Disposition Time: :29 Patient Plan: Discharge Patient Problems: Current Active Problems Problem Status Onset Adverse reaction to food Acute Gastritis Acute Condition: GOOD Discharge Instructions (ExitCare): Gastritis (DC), Food Allergy Additional Instructions: Take meds as prescribed/follow up with your doctor this week Prescriptions: Ondansetron ODT [Zofran ODT] 4 mg PO Q6 PRN #12 odt PRN Reason: Nausea/Vomiting Referrals: FAMILY PROVIDER,NO [Primary Care Provider] - Follow up with primary Forms: [employer] (Citizen [place]), WORK NOTE
[2018-08-23] MEDS ORDERED: Sodium Chloride 0.9% 1,000 ML IV SCH (22:00)
[2018-08-23 22:59] LABS: ALB/GLOB RATIO 1.4 (1.1-1.8); ALT/SGPT 64 U/L (7-56); AST/SGOT 52 U/L (17-59); BLOOD UREA NITROGEN 12 mg/dL (7-21); CALCIUM 8.8 mg/dL (8.4-10.5); GFR NON-AFRICAN AMERICAN > 60; LIPASE 80 U/L (23-300)
[2018-08-23] MEDS ORDERED: Iohexol 350 MG/100 ML VIAL ONE (23:03)
[2018-08-23 23:05] LABS: HEMOGLOBIN 13.7 g/dL (14.0-18.0); MEAN CELL VOLUME 81.2 fl (80.0-105.0); MEAN CORPUSCULAR HEMOGLOBIN 27.7 pg (25.0-35.0); MEAN CORPUSCULAR HGB CONC 34.2 g/dl (31.0-37.0); MEAN PLATELET VOLUME 10.1 fl (7.0-11.0); RBC 4.94 10^6/uL (3.5-6.1); RED CELL DISTRIBUTION WIDTH 13.2 % (11.5-14.5); WHITE BLOOD COUNT 6.8 10^3/uL (4.5-11.0)
[2018-08-24] MEDS ORDERED: Potassium Chloride 20 mEq ER Tab PO STA (01:29)
[2018-08-24 01:51] VITALS: BP 127/84; PULSE 65; RESP 15; O2SAT 99
--- NOTE | 2018-08-24 08:43 | CT ---
Date of service: 08/23/2018 PROCEDURE: CT HEAD WITHOUT CONTRAST. HISTORY: dizzy COMPARISON: None available. TECHNIQUE: Axial computed tomography images were obtained through the head/brain without intravenous contrast. Radiation dose: Total exam DLP = 915.18 mGy-cm. This CT exam was performed using one or more of the following dose reduction techniques: Automated exposure control, adjustment of the mA and/or kV according to patient size, and/or use of iterative reconstruction technique. FINDINGS: HEMORRHAGE: No intracranial hemorrhage. BRAIN: Bradford-white matter differentiation is preserved. There is no mass, mass effect or abnormal extra-axial fluid collection. There is no territorial infarction. The midline sagittal structures are normal. VENTRICLES: The ventricles are normal in size, shape and configuration. CALVARIUM: There is no calvarial fracture or extracranial soft tissue swelling. PARANASAL SINUSES: Predominantly clear. MASTOID AIR CELLS: Predominantly clear. OTHER FINDINGS: None. IMPRESSION: No acute intracranial abnormality. If there is a persistent focal neurologic deficit and an ongoing clinical concern for acute infarction, an MRI of the brain without intravenous contrast would be a more sensitive modality for evaluation of hyperacute/acute ischemic infarction. A preliminary report was provided by [employer].
--- NOTE | 2018-08-24 09:45 | CT ---
Date of service: 08/23/2018 PROCEDURE: CT Abdomen and Pelvis with contrast HISTORY: abdominal pain COMPARISON: 01/20/2018 TECHNIQUE: CT scan of the abdomen and pelvis was performed after administration of intravenous contrast. Oral contrast was not administered. Coronal and sagittal reformatted images were obtained. Contrast dose: 100 mL Omnipaque 350 Radiation dose: Total exam DLP = 1005.01 mGy-cm. This CT exam was performed using one or more of the following dose reduction techniques: Automated exposure control, adjustment of the mA and/or kV according to patient size, and/or use of iterative reconstruction technique. FINDINGS: LOWER THORAX: The visualized lungs are clear. LIVER: Normal in size with homogeneous enhancement. There is a stable hemangioma in the right hepatic lobe. Additional stable small low-attenuation lesion in the right hepatic lobe is too small to characterize by CT criteria likely a small hemangioma. No ductal dilatation. GALLBLADDER AND BILE DUCTS: The gallbladder is contracted. No calcified gallstones, wall thickening or pericholecystic fluid. PANCREAS: Normal in size with homogeneous enhancement. No gross lesion or ductal dilatation. SPLEEN: Normal in size and appearance. ADRENALS: No discrete nodule. KIDNEYS AND URETERS: Normal in size with homogeneous enhancement. No hydronephrosis. No solid mass. VASCULATURE: No aortic aneurysm. There are no aortic atherosclerotic calcifications or mural plaque present. BOWEL: Evaluation of the bowel is limited in the absence of oral contrast. The small bowel loops are normal in caliber. The colon is grossly normal in appearance. No bowel wall thickening or obstruction. APPENDIX: Normal appendix. PERITONEUM: No free fluid. No free air. LYMPH NODES: No enlarged lymph nodes. BLADDER: Well distended and normal in appearance. REPRODUCTIVE: The prostate gland is normal in size. BONES: No acute fracture. Within normal limits for the patient's age. OTHER FINDINGS: None. IMPRESSION: No acute intracranial abnormality. Stable hemangioma in the right hepatic lobe. A preliminary report was provided by [employer].
--- NOTE | 2018-08-24 11:42 | CARD ---
APPROVED REPORT Date of service: 08/23/2018 EKG Measurement Heart [id number] <Conclusion> Normal sinus rhythm Normal Electrocardiogram
== END 2018-08-24 01:50 | disposition home or self-care (01) ==
LOC: ED 21:09
DX: T78.1XXA Other adverse food reactions, not elsewhere classified, initial encounter (principal); R10.9 Unspecified abdominal pain; K29.70 Gastritis, unspecified, without bleeding
CPT/HCPCS: 70450; 74177; 80053; 83690; 85027; 93005; 96374; 96375; 99284; J2405; J7030; Q9967